=== PATIENT | male | born 1995 | race Two or more races ===

== ENCOUNTER 2022-03-26 22:26 | Emergency (ER) | payer SELFPAY ==
[2022-03-26 22:33] VITALS: BP 135/70; PULSE 71; RESP 16; TEMP 36.4; O2SAT 98; BMI 30.7
--- NOTE | 2022-03-26 23:08 | ED.GENADULT ---
HPI - General Adult General Chief complaint: Unspecified Complaint, Adult Stated complaint: Right finger swelling around ring Time Seen by Provider: 03/26/22 22:27 History of Present Illness HPI narrative: Patient is a 26-year-old gentleman who comes in today with very tight ring on his 4th digit of his right hand. The proximal digit is beginning to swell and he is no longer able to remove the ring. He has good sensation of his finger tip full range of motion no signs of skin breakdown. Related Data Home Medications Medication Instructions Recorded Confirmed No Known Home Medications 03/26/22 03/26/22 Allergies Allergy/AdvReac Type Severity Reaction Status Date / Time No Known Drug Allergies Allergy Verified 03/26/22 22:35 Review of Systems Status of ROS: Reports: 10 or more systems reviewed and unremarkable except as noted in History and below [facility] Medical History (Updated 03/26/22 @ 22:58 by Jose Manuel Palacio MD) Exercise-induced asthma Surgical History (Updated 03/26/22 @ 22:37 by Tani Dorantes RN) No significant past surgical history Social History Smoking Status: Current some day smoker What tobacco products do you use: cigarettes Do you use any of these nicotine containing products: None Second hand tobacco smoke exposure: Yes How often do you have a drink containing alcohol: never How often do you have six or more drinks on one occasion: Never AUDIT-C Alcohol total score: 0 Non-prescribed substance use: denies use Exam Narrative: Exam Narrative: EXAM GENERAL: Patient appears comfortable and well. EYES: No scleral icterus. LYMPH: No supraclavicular or cervical lymphadenopathy. SKIN: Visible skin seen during exam normal or with benign process only. EXT: Right 4th digit is swollen with good circulation. ABD: Soft, non tender, non distended. PSYCH: Good eye contact, speech is not pressured. Const: Vital Signs, click to edit/add: Vital Signs - 24 hr 03/26/22 22:33 Temperature 97.6 F Pulse Rate [Right Pulse Oximeter] 71 Respiratory Rate 16 Blood Pressure [Ri ght Upper Arm] 135/70 Pulse Oximetry 98 Course Course Hospital Course: Ring cutter was used to remove the ring. The circulation was restored and patient is now asymptomatic. Vital Signs Vital signs: Initial Vital Signs Temperature 97.6 F 03/26/22 22:33 Temperature Source Temporal Artery Scan 03/26/22 22:33 Pulse Rate 71 03/26/22 22:33 Respiratory Rate 16 03/26/22 22:33 Blood Pressure 135/70 03/26/22 22:33 Blood Pressure Mean 91 03/26/22 22:33 Blood Pressure Position Sitting 03/26/22 22:33 Pulse Oximetry 98 03/26/22 22:33 Oxygen Delivery Method 03/26/22 22:33 Vital Signs Temperature 97.6 F 03/26/22 22:33 Pulse Rate 71 03/26/22 22:33 Respiratory Rate 16 03/26/22 22:33 Blood Pressure 135/70 03/26/22 22:33 Pulse Oximetry 98 03/26/22 22:33 Temperature 97.6 F 03/26/22 22:33 Pulse Rate 71 03/26/22 22:33 Respiratory Rate 16 03/26/22 22:33 Blood Pressure 135/70 03/26/22 22:33 Pulse Oximetry 98 03/26/22 22:33 Discharge Plan Discharge Clinical Impression: Finger injury Patient Disposition: Home, Self-Care Condition: Stable Additional Instructions: Ice Tylenol Motrin Activity Level: Activity as Tolerated Discharge Diet: Regular Prescriptions: No Action No Known Home Medications 0RF Stand Alone Forms: My[employer] Info Instructions
[2022-03-26 23:28] VITALS: BP 135/72; PULSE 78; RESP 16; TEMP 36.4
== END 2022-03-26 23:11 | disposition home or self-care (01) ==
LOC: ED 23:16
PROVIDERS: Emergency Provider Internal Medicine
DX: S60.444A External constriction of right ring finger, initial encounter (principal); W49.04XA Ring or other jewelry causing external constriction, initial encounter
CPT/HCPCS: 99282; 99283

== ENCOUNTER 2022-07-20 21:00 | Emergency (ER) | payer SELFPAY ==
[2022-07-20 21:08] VITALS: BP 160/88; PULSE 89; RESP 18; TEMP 37; O2SAT 97
--- NOTE | 2022-07-20 21:19 | CRLHL7_ITS ---
For Patients: As a result of the Cures Act, medical imaging exams and procedure reports are released immediately into your electronic medical record. You may view this report before your referring provider. If you have questions, please contact your health care provider. INDICATION: Chest pain. TECHNIQUE: Chest 1 views. COMPARISON: None. FINDINGS: Cardiovascular and mediastinum: Cardiomediastinal silhouette is within normal limits. Lungs and pleural spaces: Lungs are clear. No sign of pleural effusion. No pneumothorax. Bones and soft tissues: No significant findings. IMPRESSION: No acute cardiopulmonary process identified. Dictated by Leann Negrete MD @ 07/20/2022 10:22:15 PM (Electronically Signed)
--- NOTE | 2022-07-20 21:21 | ED.CHESTPAIN ---
HPI - Chest Pain General Chief Complaint: Chest Pain Stated Complaint: Chest pain, congestion, coughing Time Seen by Provider: 07/20/22 21:16 History of Present Illness HPI narrative: Pt is a 26 year old gentleman who comes in with chest pain, congestion, general malaise and pharyngitis for the past 2-3 days. Pt is not vaccinated for COVID 19. Pt has a nonproductive cough. He has no sick contacts. Pt in is dull and anterior without radiation. No improvement with OTC. Pain is moderate in intensity. No previous history of cardiovascular or respiratory illness except mild exercise induced asthma. Related Data Home Medications Medication Instructions Recorded Confirmed No Known Home Medications 03/26/22 03/26/22 Allergies Allergy/AdvReac Type Severity Reaction Status Date / Time No Known Drug Allergies Allergy Verified 03/26/22 22:35 Review of Systems Status of ROS Reports: 10 or more systems reviewed and unremarkable except as noted in History and below PFSH PFS Medical History Exercise-induced asthma Surgical History No significant past surgical history Social History Smoking Status: Current some day smoker What tobacco products do you use: cigarettes Do you use any of these nicotine containing products: None Second hand tobacco smoke exposure: Yes How often do you have a drink containing alcohol: never How often do you have six or more drinks on one occasion: Never AUDIT-C Alcohol total score: 0 Non-prescribed substance use: denies use Exam Narrative Exam Narrative: EXAM GENERAL: Patient appears comfortable and well. EYES: No scleral icterus. ENT: Tympanic membranes and oropharynx normal. THYROID: no thyroid nodules or thyromegaly. LYMPH: No supraclavicular or cervical lymphadenopathy. SKIN: Visible skin seen during exam normal or with benign process only. EXT: No dependent lower extremity pedal edema. HEART: Regular rate and rhythm with no murmurs, rubs, or gallops. LUNGS: Clear to auscultation bilaterally with no crackles or wheezes. ABD: Soft, non tender, non distended. PSYCH: Good eye contact, speech is not pressured. Const Vital Signs, click to edit/add: Vital Signs - 24 hr 07/20/22 21:08 Temperature 98.6 F Pulse Rate [Left Pulse Oximeter] 89 Respiratory Rate 18 Blood Pressure [Right Upper Arm] 160/88 H Pulse Oximetry 97 Oxygen Delivery Method Room Air Course Course Hospital Course: Pt seen and examined. Appropriate studies collected. Reevaluation(s) Reevaluation #1: Work up including CXR, D dimer, CBC, BMP, Troponin, Viral Swab, Strep swab, EKG all negative. Time: 22:21 Vital Signs Vital signs: Initial Vital Signs Temperature 98.6 F 07/20/22 21:08 Temperature Source Temporal Artery Scan 07/20/22 21:08 Pulse Rate 89 07/20/22 21:08 Pulse Rhythm 07/20/22 21:08 Respiratory Rate 18 07/20/22 21:08 Blood Pressure 160/88 H 07/20/22 21:08 Blood Pressure Mean 112 07/20/22 21:08 Blood Pressure Position Sitting 07/20/22 21:08 Pulse Oximetry 97 07/20/22 21:08 Oxygen Delivery Method 07/20/22 21:08 Vital Signs Temperature 98.6 F 07/20/22 21:08 Pulse Rate 89 07/20/22 21:08 Respiratory Rate 18 07/20/22 21:08 Blood Pressure 160/88 H 07/20/22 21:08 Pulse Oximetry 97 07/20/22 21:08 Oxygen Delivery Method 07/20/22 21:08 Temperature 98.6 F 07/20/22 21:08 Pulse Rate 89 07/20/22 21:08 Respiratory Rate 18 07/20/22 21:08 Blood Pressure 160/88 H 07/20/22 21:08 Pulse Oximetry 97 07/20/22 21:08 Oxygen Delivery Method 07/20/22 21:08 MDM - Chest Pain MDM Narrative Medical decision making narrative: Pt presents with SOB and chest pain. Extensive workup as above negative Pt with normal exam and vital signs. Will treat symptomatically with out pt follow up. Differential Diagnosis Differential diagnosis: Likely pneumothorax, stable angina, atypical chest pain, st elevation myocardial infarction, costochondritis and chest pain Lab Data Labs: Lab Results 07/20/22 07/20/22 07/20/22 Range/Units 21:12 21:25 21:25 WBC 6.74 (4.50-11.00) K/uL RBC 4.98 (4.30-5.90) m/uL Hgb 15.2 (13.5-17.5) gm/dL Hct 43.6 (37.0-53.0) % MCV 88 (80-100) fL MCH 31 (26-34) pg MCHC 35 (32-36) gm/dL RDW Coeff of Parris 12.8 (11.5-15.5) % Plt Count 240 (140-440) K/uL Neut % (Auto) 53.6 (42.0-72.0) % Lymph % (Auto) 38.3 (20-44) % Caroline % (Auto) 6.1 (0.0-11.0) % Eos % (Auto) 1.6 (0.0-7.0) % Baso % (Auto) 0.3 (0.0-3.0) % Neut # (Auto) 3.61 (1.7-7.0) K/uL Lymph # (Auto) 2.58 (0.90-2.90) K/uL Caroline # (Auto) 0.40 (0.00-0.90) K/UL Eos # (Auto) 0.11 (0.00-0.50) K/uL Baso # (Auto) 0.02 (0.00-0.30) K/uL Abs Immat Gran (auto) 0.01 (0.00-0.30) K/uL Imm/Tot Granulo (auto) 0.1 % D-Dimer Quant (PE/DVT) 0.40 (0.00-0.50) ug/ml Sodium (135-149) mmol/L Potassium (3.6-5.1) mmol/L Chloride (96-114) mmol/L Carbon Dioxide (20-32) mmol/L BUN (5-24) mg/dL Creatinine (0.5-1.5) mg/dL Estimated GFR ml/min Glucose (60-115) mg/dL Calcium (8.4-10.6) mg/dL Troponin I (0.01-0.04) ng/mL SARS-CoV-2 (PCR) Negative SARS-CoV-2 (Negative) Influenza Type A (PCR) Negative PCR FLU A (Negative) Influenza Type B (PCR) Negative PCR FLU B (Negative) RSV (PCR) Negative PCR RSV (Negative) Group A Strep DNA (Not Detectd) 07/20/22 07/20/22 Range/Units 21:25 21:25 WBC (4.50-11.00) K/uL RBC (4.30-5.90) m/uL Hgb (13.5-17.5) gm/dL Hct (37.0-53.0) % MCV (80-100) fL MCH (26-34) pg MCHC (32-36) gm/dL RDW Coeff of Parris (11.5-15.5) % Plt Count (140-440) K/uL Neut % (Auto) (42.0-72.0) % Lymph % (Auto) (20-44) % Caroline % (Auto) (0.0-11.0) % Eos % (Auto) (0.0-7.0) % Baso % (Auto) (0.0-3.0) % Neut # (Auto) (1.7-7.0) K/uL Lymph # (Auto) (0.90-2.90) K/uL Caroline # (Auto) (0.00-0.90) K/UL Eos # (Auto) (0.00-0.50) K/uL Baso # (Auto) (0.00-0.30) K/uL Abs Immat Gran (auto) (0.00-0.30) K/uL Imm/Tot Granulo (auto) % D-Dimer Quant (PE/DVT) (0.00-0.50) ug/ml Sodium 140 (135-149) mmol/L Potassium 3.9 (3.6-5.1) mmol/L Chloride 102 (96-114) mmol/L Carbon Dioxide 26 (20-32) mmol/L BUN 14 (5-24) mg/dL Creatinine 1.2 (0.5-1.5) mg/dL Estimated GFR 86 ml/min Glucose 115 (60-115) mg/dL Calcium 9.9 (8.4-10.6) mg/dL Troponin I < 0.01 L (0.01-0.04) ng/mL SARS-CoV-2 (PCR) (Negative) Influenza Type A (PCR) (Negative) Influenza Type B (PCR) (Negative) RSV (PCR) (Negative) Group A Strep DNA NOT DETECTED (Not Detectd) Discharge Plan Discharge Clinical Impression: Atypical chest pain Condition: Stable Instructions: Viral Syndrome (ED) Additional Instructions: Tylenol Motrin Rest Fluids Activity Level: No Restrictions Discharge Diet: Regular Prescriptions: No Action No Known Home Medications Follow Up/Referrals: Provider,Not a Local [Primary Care Provider] - Stand Alone Forms: MyHealth Info Instructions
[2022-07-20 21:38] LABS: Basophils Absolute Auto 0.02 K/uL (0.00-0.30); Basophils Percent Auto 0.3 % (0.0-3.0); Eosinophils Absolute Auto 0.11 K/uL (0.00-0.50); Eosinophils Percent Auto 1.6 % (0.0-7.0); Hematocrit 43.6 % (37.0-53.0); Hemoglobin* 15.2 gm/dL (13.5-17.5); Immature Granulocytes Abs Auto 0.01 K/uL (0.00-0.30); Immature Granulocytes Pct Auto 0.1 %; Lymphocytes Absolute Auto 2.58 K/uL (0.90-2.90); Lymphocytes Percent Auto 38.3 % (20-44); Mean Corpuscular HGB Conc 35 gm/dL (32-36); Mean Corpuscular Hemoglobin 31 pg (26-34); Mean Corpuscular Volume 88 fL (80-100); Monocytes Percent Auto 6.1 % (0.0-11.0); Neutrophils Absolute Auto 3.61 K/uL (1.7-7.0); Neutrophils Percent Auto 53.6 % (42.0-72.0); Platelet Count* 240 K/uL (140-440); RDW Coefficient of Variation % 12.8 % (11.5-15.5); Red Blood Count 4.98 m/uL (4.30-5.90); White Blood Count* 6.74 K/uL (4.50-11.00)
[2022-07-20 21:42] LABS: Slide Review Reflex No
[2022-07-20 21:56] LABS: Chloride* 102 mmol/L (96-114); Sodium* 140 mmol/L (135-149)
[2022-07-20 21:57] LABS: Potassium* 3.9 mmol/L (3.6-5.1)
[2022-07-20 21:58] LABS: PCR FLU A Negative PCR FLU A (Negative); PCR FLU B Negative PCR FLU B (Negative); PCR RSV Negative PCR RSV (Negative)
[2022-07-20 21:59] LABS: Blood Urea Nitrogen* 14 mg/dL (5-24); Carbon Dioxide* 26 mmol/L (20-32); Creatinine* 1.2 mg/dL (0.5-1.5); Estimated Glomerular Filt Rate 86 ml/min
[2022-07-20 21:59] LABS: SARS PCR* Negative SARS-CoV-2 (Negative)
[2022-07-20 22:00] VITALS: PULSE 78; O2SAT 96
[2022-07-20 22:00] LABS: Calcium* 9.9 mg/dL (8.4-10.6); Glucose* 115 mg/dL (60-115)
[2022-07-20 22:04] LABS: Strep A DNA Probe* NOT DETECTED (Not Detectd)
[2022-07-20 22:13] LABS: Troponin I* < 0.01 ng/mL (0.01-0.04)
== END 2022-07-20 22:31 | disposition home or self-care (01) ==
LOC: ED 22:29
PROVIDERS: Emergency Provider Internal Medicine
DX: R07.89 Other chest pain (principal)
CPT/HCPCS: 36415; 71045; 80048; 84484; 85025; 85379; 87502; 87634; 87635; 87651; 93005; 99283; 99284; 99285

== ENCOUNTER 2022-07-31 16:24 | Emergency (ER) | payer SELFPAY ==
[2022-07-31 17:06] VITALS: BP 148/84; PULSE 111; RESP 20; TEMP 37.9; O2SAT 97; BMI 32.1
[2022-07-31 18:01] LABS: PCR FLU A POSITIVE PCR FLU A (Negative); PCR FLU B Negative PCR FLU B (Negative)
[2022-07-31 18:03] LABS: SARS PCR* Negative SARS-CoV-2 (Negative)
--- NOTE | 2022-07-31 18:29 | ED_ITS ---
HPI - General Adult General Time Seen by Provider: 18:30 Date Seen: 07/31/22 Chief complaint: Fever Stated complaint: Fever, cough, body aches Time Seen by Provider: 07/31/22 18:19 Source: patient and RN notes reviewed Mode of arrival: ambulatory Limitations: no limitations History of Present Illness HPI narrative: 26-year-old male who comes in today with cough, headache, fever, nasal congestion, sore throat, nausea vomiting. Symptoms have been ongoing for couple of weeks but worse in the last 5 days. He has been taking Tylenol and ibuprofen. No breathing difficulty but has burning in his throat he takes big breath in. No abdominal pain. Related Data Home Medications Medication Instructions Recorded Confirmed No Known Home Medications 03/26/22 07/31/22 Allergies Allergy/AdvReac Type Severity Reaction Status Date / Time No Known Drug Allergies Allergy Verified 07/31/22 17:11 [facility] Medical History Exercise-induced asthma Surgical History No significant past surgical history Social History Smoking Status: Current some day smoker What tobacco products do you use: cigar ettes Do you use any of these nicotine containing products: None Second hand tobacco smoke exposure: Yes How often do you have a drink containing alcohol: never How often do you have six or more drinks on one occasion: Never AUDIT-C Alcohol total score: 0 Non-prescribed substance use: denies use Exam Narrative: Exam Narrative: General: Well-developed and well-nourished, no acute distress Head: Atraumatic and normocephalic Eyes: Pupils are equal reactive, extraocular motions intact, conjunctiva clear ENT: External nose and ears are normal, posterior pharynx oropharynx with mild erythema Neck: No midline cervical tenderness, full spontaneous range of motion the nec k, trachea midline, no adenopathy Heart: Regular rate and rhythm no murmurs or thrills Lungs: Clear to auscultation bilaterally without wheezes or crackles Abdomen: Soft, nontender, nondistended with active bowel sounds Musculoskeletal: No tenderness, deformity, or edema Neurologic: Awake, alert, and oriented x3, no gross focal neurologic deficits, cranial nerves intact as tested Psych: Mood and affect are appropriate Skin: No rashes Const: Vital Signs, click to edit/add: Vital Signs - 24 hr 07/31/22 17:06 Temperature 100.2 F H Pulse Rate [Right Pulse Oximeter] 111 H Respiratory Rate 20 Blood Pressure [Ri ght Upper Arm] 148/84 H Pulse Oximetry 97 Oxygen Delivery Me thod Room Air Course Course Hospital Course: Patient seen and examined, prior records reviewed. Patient with upper respiratory symptoms, he says ongoing for the last 3 weeks worse last 5 days. Influenza positive which is probably the source of his worsening symptoms the last couple of days. Discussed continued symptom treatment, will be given a prescription for Zofran. Patient is tachycardic likely related his fever. Vital Signs Vital signs: Initial Vital Signs Temperature 100.2 F H 07/31/22 17:06 Temperature Source Temporal Artery Scan 07/31/22 17:06 Pulse Rate 111 H 07/31/22 17:06 Respiratory Rate 20 07/31/22 17:06 Blood Pressure 148/84 H 07/31/22 17:06 Blood Pressure Mean 105 07/31/22 17:06 Blood Pressure Position Sitting 07/31/22 17:06 Pulse Oximetry 97 07/31/22 17:06 Oxygen Delivery Method 07/31/22 17:06 Vital Signs Temperature 100.2 F H 07/31/22 17:06 Pulse Rate 111 H 07/31/22 17:06 Respiratory Rate 20 07/31/22 17:06 Blood Pressure 148/84 H 07/31/22 17:06 Pulse Oximetry 97 07/31/22 17:06 Oxygen Delivery Method 07/31/22 17:06 Temperature 100.2 F H 07/31/22 17:06 Pulse Rate 111 H 07/31/22 17:06 Respiratory Rate 20 07/31/22 17:06 Blood Pressure 148/84 H 07/31/22 17:06 Pulse Oximetry 97 07/31/22 17:06 Oxygen Delivery Method 07/31/22 17:06 Medical Decision Making Lab Data Labs: Lab Results 07/31/22 Range/Units 17:14 SARS-CoV-2 (PCR) Negative SARS-CoV-2 (Negative) Influenza Type A (PCR) POSITIVE PCR FLU A A (Negative) Influenza Type B (PCR) Negative PCR FLU B (Negative) Discharge Plan Discharge Clinical Impression: Influenza A Patient Disposition: Home, Self-Care Condition: Stable Instructions: Influenza (DC) Additional Instructions: Lots of fluids and rest, continue Tylenol and ibuprofen for fever. Activity Level: No Restrictions Discharge Diet: Regular Prescriptions: No Action No Known Home Medications Follow Up/Referrals: Provider,Not a Local [Primary Care Provider] - Stand Alone Forms: [employer] Info Instructions
== END 2022-07-31 18:50 | disposition home or self-care (01) ==
LOC: ED 18:45
PROVIDERS: Emergency Provider Family Medicine
DX: J10.1 Influenza due to other identified influenza virus with other respiratory manifestations (principal); Z72.0 Tobacco use
CPT/HCPCS: 87631; 99283; 99284

== ENCOUNTER 2024-01-14 20:50 | Emergency (ER) | payer OTHER, SELFPAY ==
[2024-01-14 21:01] VITALS: BP 169/83; PULSE 80; RESP 20; TEMP 36.9; O2SAT 98; BMI 30.7
[2024-01-14 21:50] LABS: PCR FLU A Negative PCR FLU A (Negative); PCR FLU B Negative PCR FLU B (Negative); PCR RSV Negative PCR RSV (Negative); SARS PCR* Negative SARS-CoV-2 (Negative)
--- NOTE | 2024-01-14 22:27 | XR_ITS ---
Patient: CARLOS PÉREZ Facility:?[facility] Patient ID:?[id number] Site Patient ID:?[id number]. Site :?[id number] Study:?XRay-Chest 2V-01/14/2024 10:50:30 PM Ordering Physician:KARTHIK Final Report: INDICATION: Shortness of breath. TECHNIQUE: Chest 2 views. COMPARISON: 07/20/2022. FINDINGS: Cardiovascular and mediastinum: Heart size and vasculature are normal in caliber and appearance. Lungs and pleural spaces: Lungs are clear. No sign of infiltrate or mass. No sign of pleural effusion. No pneumothorax. Bones and soft tissues: Unremarkable for age. IMPRESSION: No evidence of an acute pulmonary process. Dictated by Godfrey Loco MD @ 01/14/2024 11:05:59 PM Signed by:?Godfrey Loco MD @01/14/2024 11:05:59 PM (Electronic Signature)
[2024-01-14 23:02] VITALS: BP 146/90; PULSE 76; RESP 16; O2SAT 96
[2024-01-14] MEDS: 0.9 % SODIUM CHLORIDE 1000 ml 1,000 ML IV (23:04)
[2024-01-14] MEDS: diphenhydrAMINE 50 MG/ML inj 25 MG IVP (23:05)
[2024-01-14] MEDS: METOCLOPRAMIDE HCL 5 MG/ML INJ 10 MG IVP (23:05)
[2024-01-14] MEDS: KETOROLAC 15 MG/ML inj IVP (23:05)
--- NOTE | 2024-01-14 23:27 | ED.GENADULT ---
HPI - General Adult General Date Seen: 01/14/24 Chief complaint: Fever Stated complaint: Fever, body aches Time Seen by Provider: 01/14/24 22:27 Source: patient Mode of arrival: ambulatory Limitations: no limitations History of Present Illness HPI narrative: Patient is a 28-year-old male presenting to the emergency department for headaches, fevers, body aches and some mild shortness of breath has been going on for the past 4 days. He has been taking ibuprofen last time he took was 16:00 today. His giving some mild relief with it. Does states sister has been having similar symptoms but she has not been diagnosed with anything. States the headache feels like a pressure sensation in his forehead. Denies having any headaches like this before. Denies chest pain. He does state he feels short of breath. Denies nausea, vomiting, abdominal pain, diarrhea, constipation, Related Data Home Medications Medication Instructions Recorded Confirmed No Known Home Medications 03/26/22 07/31/22 Allergies Allergy/AdvReac Type Severity Reaction Status Date / Time No Known Drug Allergies Allergy Verified 07/31/22 17:11 Review of Systems Status of ROS: Reports: 10 or more systems reviewed and unremarkable except as noted in History and below [facility] Medical History Exercise-induced asthma ?J45.990 - Exercise induced bronchospasm (ICD-10) Surgical History No significant past surgical history Social History Smoking Status: Current some day smoker What tobacco products do you use: cigarettes Do you use any of these nicotine containing products: None Second hand tobacco smoke exposure: Yes How often do you have a drink containing alcohol: 2-4 times a month How many standard drinks containing alcohol do you have on a typical day: 1 or 2 How often do you have six or more drinks on one occasion: Never AUDIT-C Alcohol total score: 2 Non-prescribed substance use: denies use service: No Exam Narrative: Exam Narrative: Const: Well-nourished, Well-developed, in mild distress Eyes: PERRL, no conjunctival injection, and symmetrical lids HENT: Atraumatic external nose and ears. Moist mucous membranes. Neck: Symmetric, trachea midline, No thyromegaly. CVS: RRR, No murmurs or gallops. Peripheral pulses 2+ and equal in all extremities RESP: Unlabored respiratory effort. Clear to auscultation bilaterally. GI: Nontender/Nondistended, No rebound or guarding. MSK:Extremities w/o deformity, Normal Active ROM Skin: Warm, Dry. No rashes or lesions. Neuro: Normal Muscle tone, No focal neurological deficits. Psych: Awake, Alert, & Oriented x3. Appropriate mood and affect. Const: Vital Signs, click to edit/add: Vital Signs - 24 hr 01/14/24 21:01 01/14/24 23:02 Temperature 98.4 F Pulse Rate [Right Pulse Oximeter] 80 76 Respiratory Rate 20 16 Blood Pressure [Ri ght Upper Arm] 169/83 H 146/90 H Pulse Oximetry 98 96 Oxygen Delivery Me thod Room Air Room Air Course Vital Signs Vital signs: Initial Vital Signs Temperature 98.4 F 01/14/24 21:01 Temperature Source Oral 01/14/24 21:01 Pulse Rate 80 01/14/24 21:01 Pulse Rhythm Regular 01/14/24 21:01 Respiratory Rate 20 01/14/24 21:01 Blood Pressure 169/83 H 01/14/24 21:01 Blood Pressure Mean 111 H 01/14/24 21:01 Blood Pressure Position Sitting 01/14/24 21:01 Pulse Oximetry 98 01/14/24 21:01 Oxygen Delivery Method Room Air 01/14/24 21:01 Vital Signs Temperature 98.4 F 01/14/24 21:01 Pulse Rate 80 01/14/24 21:01 Respiratory Rate 20 01/14/24 21:01 Blood Pressure 169/83 H 01/14/24 21:01 Pulse Oximetry 98 01/14/24 21:01 Oxygen Delivery Method Room Air 01/14/24 21:01 Temperature 98.4 F 01/14/24 21:01 Pulse Rate 76 01/14/24 23:02 Respiratory Rate 16 01/14/24 23:02 Blood Pressure 146/90 H 01/14/24 23:02 Pulse Oximetry 96 01/14/24 23:02 Oxygen Delivery Method Room Air 01/14/24 23:02 Medications Administered Medications: Generic Name Dose Route Start Last Admin Trade Name Freq PRN Reason Stop Dose Admin Sodium Chloride 1,000 mls @ 1,000 mls/hr 01/14/24 22:30 01/14/24 23:04 0.9 % Sodium Chloride 1000 Ml IV 01/14/24 23:29 1,000 mls/hr .Q1H KATERINA Administration Discontinued Medications Generic Name Dose Route Start Last Admin Trade Name Freq PRN Reason Stop Dose Admin Diphenhydramine HCl 25 mg 01/14/24 22:27 01/14/24 23:05 Diphenhydramine 50 Mg/Ml Inj IVP 01/14/24 22:28 25 mg ONCE ONE Administration Ketorolac Tromethamine 15 mg 01/14/24 22:27 01/14/24 23:05 Ketorolac 15 Mg/Ml Inj IVP 01/14/24 22:28 15 mg ONCE ONE Administration Metoclopramide HCl 10 mg 01/14/24 22:27 01/14/24 23:05 Metoclopramide Hcl 5 Mg/Ml Inj IVP 01/14/24 22:28 10 mg ONCE ONE Administration Medical Decision Making [facility] Narrative Medical decision making narrative: Patient is a 28-year-old male presenting for what sounds like viral symptoms. Will do a chest x-ray as he is having some shortness of breath although his vital signs are normal. He is also having headache. Denies having headaches like this before but with his viral syndrome this seems likely secondary to that. I do not believe head imaging is necessary at this time. Will give him a migraine cocktail. COVID/flu/RSV test was done and was negative. He was feeling much better after the migraine cocktail. Chest x-ray reviewed by myself and the radiologist showed no concerning abnormalities. He is otherwise doing well can discharge home. He is agreeable to this plan Lab Data Labs: Lab Results 01/14/24 Range/Units 21:05 SARS-CoV-2 (PCR) Negative SARS-CoV-2 (Negative) Influenza Type A (PCR) Negative PCR FLU A (Negative) Influenza Type B (PCR) Negative PCR FLU B (Negative) RSV (PCR) Negative PCR RSV (Negative) Imaging Data Chest x-ray: Attestation: I have reviewed the pertinent imaging results. Radiologist's impression: No evidence of an acute pulmonary process. Dictated by Godfrey Loco MD @ 01/14/2024 11:05:59 PM Discharge Plan Discharge Clinical Impression: Viral infection Patient Disposition: Home, Self-Care Condition: Improved Instructions: Viral Syndrome (ED) Additional Instructions: Take Tylenol and ibuprofen for pain. Return to emergency department for new worsening symptoms. Make sure to stay well hydrated. Prescriptions: No Action No Known Home Medications Follow Up/Referrals: Provider,Not a Local [Primary Care Provider] - Stand Alone Forms: [employer] Info Instructions
[2024-01-14 23:44] VITALS: BP 138/78; PULSE 88; RESP 18; TEMP 37.2
== END 2024-01-14 23:44 | disposition home or self-care (01) ==
PROVIDERS: Emergency Provider Student in an Organized Health Care Education/Training Program
DX: B34.9 Viral infection, unspecified (principal)
CPT/HCPCS: 71046; 87631; 96374; 96375; 99283; 99284; J1200; J1885; J2765; J7030

== ENCOUNTER 2024-04-26 21:43 | Emergency (ER) | payer OTHER, SELFPAY ==
--- NOTE | 2024-04-26 21:52 | ED_ITS ---
HPI - General Adult General Time Seen by Provider: 21:52 <Sumaya Coley MD - Last Filed: 05/04/24 19:07> Date Seen: 04/26/24 <Sumaya Coley MD - Last Filed: 05/04/24 19:07> Chief complaint: Overdose <Sumaya Coley MD - Last Filed: 05/04/24 19:07> Stated complaint: overdose <Sumaya Coley MD - Last Filed: 05/04/24 19:07> Time Seen by Provider: 04/26/24 21:47 <Sumaya Coley MD - Last Filed: 05/04/24 19:07> Source: patient and RN notes reviewed <Sumaya Coley MD - Last Filed: 05/04/24 19:07> Mode of arrival: ambulatory <Sumaya Coley MD - Last Filed: 05/04/24 19:07> Limitations: no limitations <Sumaya Coley MD - Last Filed: 05/04/24 19:07> History of Present Illness HPI narrative: This 28-year-old male comes into the ER accompanied by his significant other with an overdose. Lonnie took nearly a whole bottle of Naprosyn. He had an [id number] bottle of Naprosyn that was reportedly new. There were 60 tablets in there, some fell out. He ingested the majority of them. It sounds as if this was an impulsive act. He had been in his bedroom all day, did not go out. He and his partner have been having issues. He found out this morning that his significant other was seeing someone else. He admits to depression and anxiety. He states tonight he had a panic attack and then took the pills. He has been having problems with sleep latency. Normally he would go to the gym but just has not felt like going to the gym a week long, has felt depressed. He is not been hospitalized for depression, no prior overdose. He has a history of depression when he was younger. He states that he has been going to the gym to help counteract his mood but just has not been able to go this last week. He has not been sick with anything. He does feel remorseful for taking the medicine, felt bad after ingesting them right away. He ingested them in front of his partner. He and his partner have been together for 8 years but they have been struggling as of late. This is certainly an area of stress for the patient. He denies any alcohol use, no drug use. Denies any other coingestant. <Sumaya Coley MD - Last Filed: 05/04/24 19:07> Related Data Home medications: Home Medications ?Medication ?Instructions ?Recorded ?Confirmed No Known Home Medications 03/26/22 07/31/22 <Sumaya Coley MD - Last Filed: 05/04/24 19:07> Allergies/adverse reactions: Allergies Allergy/AdvReac Type Severity Reaction Status Date / Time No Known Drug Allergies Allergy Verified 07/31/22 17:11 <Sumaya Coley MD - Last Filed: 05/04/24 19:07> Review of Systems Status of ROS: Reports: 6 or more systems reviewed and unremarkable except as noted in History and below <Sumaya Coley MD - Last Filed: 05/04/24 19:07> [facility] Medical History: Medical History Exercise-induced asthma ?J45.990 - Exercise induced bronchospasm (ICD-10) <Sumaya Coley MD - Last Filed: 05/04/24 19:07> Surgical History: Surgical History No significant past surgical history <Sumaya Coley MD - Last Filed: 05/04/24 19:07> Social History: Social History Smoking Status: Current some day smoker What tobacco products do you use: cigarettes Do you use any of these nicotine containing products: None Second hand tobacco smoke exposure: Yes How often do you have a drink containing alcohol: 2-4 times a month How many standard drinks containing alcohol do you have on a typical day: 1 or 2 How often do you have six or more drinks on one occasion: Never AUDIT-C Alcohol total score: 2 Non-prescribed substance use: denies use service: No <Sumaya Coley MD - Last Filed: 05/04/24 19:07> Exam Const: Vital Signs, click to edit/add: Vital Signs - 24 hr 04/26/24 21:56 04/26/24 22:24 04/26/24 22:26 Temperature 97.9 F Pulse Rate 76 Pulse Rate [Pulse Oximeter] 88 Respiratory Rate 16 16 Blood Pressure 142/89 H Blood Pressure [Ri ght Upper Arm] 141/87 H Pulse Oximetry 98 98 Oxygen Delivery Me thod Room Air 04/26/24 22:31 04/26/24 23:01 04/26/24 23:31 Temperature Pulse Rate 76 71 72 Pulse Rate [Pulse Oximeter] Respiratory Rate 16 16 16 Blood Pressure 134/81 135/83 130/91 H Blood Pressure [Ri ght Upper Arm] Pulse Oximetry 97 96 Oxygen Delivery Me thod 04/27/24 01:03 04/27/24 01:12 04/27/24 02:00 Temperature Pulse Rate 97 68 Pulse Rate [Pulse Oximeter] 70 Respiratory Rate 16 Blood Pressure 124/58 L Blood Pressure [Ri ght Upper Arm] Pulse Oximetry 96 97 Oxygen Delivery Me thod 04/27/24 02:02 04/27/24 02:03 04/27/24 03:00 Temperature Pulse Rate 70 71 68 Pulse Rate [Pulse Oximeter] Respiratory Rate 16 Blood Pressure 109/62 Blood Pressure [Ri ght Upper Arm] Pulse Oximetry 97 97 96 Oxygen Delivery Me thod 04/27/24 03:01 04/27/24 04:01 04/27/24 04:02 Temperature Pulse Rate 71 73 74 Pulse Rate [Pulse Oximeter] Respiratory Rate 16 16 Blood Pressure 104/50 L 103/60 Blood Pressure [Ri ght Upper Arm] Pulse Oximetry 96 98 98 Oxygen Delivery Me thod 04/27/24 05:00 04/27/24 05:04 04/27/24 05:05 Temperature Pulse Rate 78 72 74 Pulse Rate [Pulse Oximeter] Respiratory Rate 16 Blood Pressure Blood Pressure [Ri ght Upper Arm] Pulse Oximetry 98 97 98 Oxygen Delivery Me thod 04/27/24 05:39 04/27/24 06:00 04/27/24 06:02 Temperature Pulse Rate 77 87 95 Pulse Rate [Pulse Oximeter] Respiratory Rate Blood Pressure 109/54 L Blood Pressure [Ri ght Upper Arm] Pulse Oximetry 97 97 97 Oxygen Delivery Me thod 04/27/24 07:00 04/27/24 07:01 04/27/24 07:02 Temperature Pulse Rate 75 82 75 Pulse Rate [Pulse Oximeter] Respiratory Rate Blood Pressure 101/58 L Blood Pressure [Ri ght Upper Arm] Pulse Oximetry 96 96 96 Oxygen Delivery Me thod 04/27/24 08:00 04/27/24 08:05 04/27/24 08:06 Temperature Pulse Rate 75 71 71 Pulse Rate [Pulse Oximeter] Respiratory Rate Blood Pressure Blood Pressure [Ri ght Upper Arm] Pulse Oximetry 97 97 97 Oxygen Delivery Me thod 04/27/24 08:46 04/27/24 09:00 04/27/24 09:05 Temperature 98.1 F Pulse Rate 97 94 Pulse Rate [Pulse Oximeter] Respiratory Rate 18 Blood Pressure Blood Pressure [Ri ght Upper Arm] Pulse Oximetry 98 98 Oxygen Delivery Me thod Lonnie is a 28-year-old male that is ambulatory into the ED of his own accord. Did watch him walking to and from the bathroom in his gait is normal. He is alert, interactive and pleasant but certainly seems depressed. He has flat affect, depressed mood. Pupils are equal round reactive, sclera clear. Neck supple, no adenopathy, no thyromegaly masses or nodules. Lungs are clear, good air entry, no wheezing or crackles. CV regular rate and rhythm, no murmur. Abdomen is soft, nontender. Skin without any rash, there is no traumatic changes, no cut mancilla to the skin. <Sumaya Coley MD - Last Filed: 05/04/24 19:07> Vital Signs, click to edit/add: Vital Signs - 24 hr 04/26/24 21:56 04/26/24 22:24 04/26/24 22:26 Temperature 97.9 F Pulse Rate 76 Pulse Rate [Pulse Oximeter] 88 Respiratory Rate 16 16 Blood Pressure 142/89 H Blood Pressure [Ri ght Upper Arm] 141/87 H Pulse Oximetry 98 98 Oxygen Delivery Me thod Room Air 04/26/24 22:31 04/26/24 23:01 04/26/24 23:31 Temperature Pulse Rate 76 71 72 Pulse Rate [Pulse Oximeter] Respiratory Rate 16 16 16 Blood Pressure 134/81 135/83 130/91 H Blood Pressure [Ri ght Upper Arm] Pulse Oximetry 97 96 Oxygen Delivery Me thod 04/27/24 01:03 04/27/24 01:12 04/27/24 02:00 Temperature Pulse Rate 97 68 Pulse Rate [Pulse Oximeter] 70 Respiratory Rate 16 Blood Pressure 124/58 L Blood Pressure [Ri ght Upper Arm] Pulse Oximetry 96 97 Oxygen Delivery Me thod 04/27/24 02:02 04/27/24 02:03 04/27/24 03:00 Temperature Pulse Rate 70 71 68 Pulse Rate [Pulse Oximeter] Respiratory Rate 16 Blood Pressure 109/62 Blood Pressure [Ri ght Upper Arm] Pulse Oximetry 97 97 96 Oxygen Delivery Me thod 04/27/24 03:01 04/27/24 04:01 04/27/24 04:02 Temperature Pulse Rate 71 73 74 Pulse Rate [Pulse Oximeter] Respiratory Rate 16 16 Blood Pressure 104/50 L 103/60 Blood Pressure [Ri ght Upper Arm] Pulse Oximetry 96 98 98 Oxygen Delivery Me thod 04/27/24 05:00 04/27/24 05:04 04/27/24 05:05 Temperature Pulse Rate 78 72 74 Pulse Rate [Pulse Oximeter] Respiratory Rate 16 Blood Pressure Blood Pressure [Ri ght Upper Arm] Pulse Oximetry 98 97 98 Oxygen Delivery Me thod 04/27/24 05:39 04/27/24 06:00 04/27/24 06:02 Temperature Pulse Rate 77 87 95 Pulse Rate [Pulse Oximeter] Respiratory Rate Blood Pressure 109/54 L Blood Pressure [Ri ght Upper Arm] Pulse Oximetry 97 97 97 Oxygen Delivery Me thod 04/27/24 07:00 04/27/24 07:01 04/27/24 07:02 Temperature Pulse Rate 75 82 75 Pulse Rate [Pulse Oximeter] Respiratory Rate Blood Pressure 101/58 L Blood Pressure [Ri ght Upper Arm] Pulse Oximetry 96 96 96 Oxygen Delivery Me thod 04/27/24 08:00 04/27/24 08:05 04/27/24 08:06 Temperature Pulse Rate 75 71 71 Pulse Rate [Pulse Oximeter] Respiratory Rate Blood Pressure Blood Pressure [Ri ght Upper Arm] Pulse Oximetry 97 97 97 Oxygen Delivery Me thod 04/27/24 08:46 04/27/24 09:00 04/27/24 09:05 Temperature 98.1 F Pulse Rate 97 94 Pulse Rate [Pulse Oximeter] Respiratory Rate 18 Blood Pressure Blood Pressure [Ri ght Upper Arm] Pulse Oximetry 98 98 Oxygen Delivery Me thod <Supriya Arango MD - Last Filed: 04/28/24 23:56> Vital Signs, click to edit/add: Vital Signs - 24 hr 04/26/24 21:56 04/26/24 22:24 04/26/24 22:26 Temperature 97.9 F Pulse Rate 76 Pulse Rate [Pulse Oximeter] 88 Respiratory Rate 16 16 Blood Pressure 142/89 H Blood Pressure [Ri ght Upper Arm] 141/87 H Pulse Oximetry 98 98 Oxygen Delivery Me thod Room Air 04/26/24 22:31 04/26/24 23:01 04/26/24 23:31 Temperature Pulse Rate 76 71 72 Pulse Rate [Pulse Oximeter] Respiratory Rate 16 16 16 Blood Pressure 134/81 135/83 130/91 H Blood Pressure [Ri ght Upper Arm] Pulse Oximetry 97 96 Oxygen Delivery Me thod 04/27/24 01:03 04/27/24 01:12 04/27/24 02:00 Temperature Pulse Rate 97 68 Pulse Rate [Pulse Oximeter] 70 Respiratory Rate 16 Blood Pressure 124/58 L Blood Pressure [Ri ght Upper Arm] Pulse Oximetry 96 97 Oxygen Delivery Me thod 04/27/24 02:02 04/27/24 02:03 04/27/24 03:00 Temperature Pulse Rate 70 71 68 Pulse Rate [Pulse Oximeter] Respiratory Rate 16 Blood Pressure 109/62 Blood Pressure [Ri ght Upper Arm] Pulse Oximetry 97 97 96 Oxygen Delivery Me thod 04/27/24 03:01 04/27/24 04:01 04/27/24 04:02 Temperature Pulse Rate 71 73 74 Pulse Rate [Pulse Oximeter] Respiratory Rate 16 16 Blood Pressure 104/50 L 103/60 Blood Pressure [Ri ght Upper Arm] Pulse Oximetry 96 98 98 Oxygen Delivery Me thod 04/27/24 05:00 04/27/24 05:04 04/27/24 05:05 Temperature Pulse Rate 78 72 74 Pulse Rate [Pulse Oximeter] Respiratory Rate 16 Blood Pressure Blood Pressure [Ri ght Upper Arm] Pulse Oximetry 98 97 98 Oxygen Delivery Me thod 04/27/24 05:39 04/27/24 06:00 04/27/24 06:02 Temperature Pulse Rate 77 87 95 Pulse Rate [Pulse Oximeter] Respiratory Rate Blood Pressure 109/54 L Blood Pressure [Ri ght Upper Arm] Pulse Oximetry 97 97 97 Oxygen Delivery Me thod 04/27/24 07:00 04/27/24 07:01 04/27/24 07:02 Temperature Pulse Rate 75 82 75 Pulse Rate [Pulse Oximeter] Respiratory Rate Blood Pressure 101/58 L Blood Pressure [Ri ght Upper Arm] Pulse Oximetry 96 96 96 Oxygen Delivery Me thod 04/27/24 08:00 04/27/24 08:05 04/27/24 08:06 Temperature Pulse Rate 75 71 71 Pulse Rate [Pulse Oximeter] Respiratory Rate Blood Pressure Blood Pressure [Ri ght Upper Arm] Pulse Oximetry 97 97 97 Oxygen Delivery Me thod 04/27/24 08:46 04/27/24 09:00 04/27/24 09:05 Temperature 98.1 F Pulse Rate 97 94 Pulse Rate [Pulse Oximeter] Respiratory Rate 18 Blood Pressure Blood Pressure [Ri ght Upper Arm] Pulse Oximetry 98 98 Oxygen Delivery Me thod <Godfrey Gonzales MD - Last Filed: 04/27/24 14:18> Documenting provider has reviewed patient's vital signs: yes <Sumaya Coley MD - Last Filed: 05/04/24 19:07> Course Course ED Course: Poison Control was contacted by nursing staff. They recommended a basic metabolic panel and then in 4 hours repeating the basic metabolic panel and a Tylenol level. They did state about 6 hours after ingestion he could become acidotic in could see a spike in his creatinine. I will be ordering a full laboratory evaluation that we would typically do for psychiatric patients. Will also screen for COVID. Have discussed with patient that be side the medical clearance, he does need psychiatric stabilization. We do not have psychiatric services here. In the morning, will have psychosocial rehabilitation counselor help us to look for placement. He has had a suicidal gesture with intentional overdose of Naprosyn. This is certainly serious an speaks as to his mental health. I do think he needs to see Psychiatry for mental health stabilization once medically clear. Patient is here voluntarily of his own volition at this time. Have reviewed with patient and his partner that he is holdable. <Sumaya Coley MD - Last Filed: 05/04/24 19:07> Reevaluation(s) Time of Reevaluation #1: 07:57 <Supriya Arango MD - Last Filed: 04/28/24 23:56> Reevaluation #1: Dr. Arango- I assumed care for patient overnight. I reviewed the admitting notes and have reviewed the to a.m. labs. They are all reassuring. Urine output was slightly borderline, therefore we continue to push oral fluids and I did bolus 1 L of IV fluid. Will continue to watch urine output closely. He can be medically cleared at this time. I did give omeprazole p.o. x1 to help with stomach protection in the setting of NSAID overdose. We are still awaiting transition social worker consult. Would likely benefit from inpatient placement and stabilization due to suicide attempt. Will hand over care to incoming day shift partner. <Supriya Arango MD - Last Filed: 04/28/24 23:56> Reevaluation #2: Dr. Gonzales assumed care of this patient at shift change-8:00 a.m. on 04/27. Patient had presented with an intentional overdose of nonsteroidal anti- inflammatories yesterday that occurred during a disagreement with his boyfriend after the patient confronted his boyfriend about infidelity. He is medically clear. Patient had been voluntarily amenable to therapy in the ER overnight. He is holdable but currently voluntary. Plan would be for an inpatient mental health admission. He will need to be assessed by social Work today to help find placement.... <Godfrey Gonzales MD - Last Filed: 04/27/24 14:18> Reevaluation #3: I recheck the patient at about 9 or 9:30 a.m.. He was alert, tired because he says he slept poorly due to the mattress here in the ER. He was calm and cooperative. We discussed the presenting scenario. Patient corroborates that he does have a history of depression dating back to high school. He had been on meds for a couple of years in a school but largely to has not taken them and during his adult life. He generally is able to cope with this depression by exercise and going to the gym she. He has been in a relationship with his boyfriend for 8 years. It sounds like there have been troubles with her relationship often on the past. The patient has had a feeling the past few days that there was something wrong so he checked his boyfriend's phone this weekend and discover text messages indicating the patient's boyfriend had been unfaithful to the patient for the past couple of months. The patient confronted his boyfriend about the infidelity early Saturday morning. It sounds like they had an argument. The patient was very upset. It sounds like the patient was staying and in the home and they were planning to work out the relationship and keep going. The patient was largely standing all day upstairs in his bedroom. He says that his boyfriend came to check on him multiple times but the patient did not want to talk. Something happened yesterday evening where the patient became very upset so he grabbed it and new bottle of Naprosyn and took almost the entire bottle in front of his boyfriend. When I asked the patient why he did that, he says he knew the taking the pills might be dangerous and that he thinks he does really wanted his boyfriend to see him taking the pills and stop him from doing it. The patient says that he had almost immediate remorse after swallowing the pills and became worried that it might be a life-threatening ingestion so the patient is boyfriend voluntarily came to the ER last night desiring help. Labs showed normal kidney function. Normal bicarb and no evidence for metabolic acidosis. Repeat labs this morning confirm normal kidney function. He does have mildly abnormal bilirubin at 2.3 and AST at 48 which is similar to labs from last night. No evidence for other involving liver failure. Tylenol level was negative. No alcohol consumption. In [place] review of medical literature it looks like there are rare cases of mild hepatic toxicity from naproxen use which tends to resolve after cessation. It sounds like he was agreeable for inpatient mental health treatment yesterday evening. This morning he is changing his mind. Says he feels he feels better about things any just wants to go home. He has supportive friends and neighbors. His mother supportive. His boyfriend is also very supportive and they are working hard to stabilized their relationship. While this was going on, the patient's boyfriend, Jose De Jesus, was very upset. He had a couple of phone conversations with nursing staff. He says that the nurses told him that social Work has already decided that Lonnie is going for inpatient mental health treatment. He says that should not be possible since the transition social worker has not met with Lonnie yet. He became irate and was threatening to call his formula mixer. He ultimately I was able to meet with the patient, his friend Deniz rod (in person) and his boyfriend Jose De Jesus (by phone). Our hospital transition social worker Leila was present for this interaction. The patient's boyfriend Jose De Jesus was angry and irate. He says that he has been told by 2 different nurses that transition social worker has already recommended inpatient mental health care. Jose De Jesus is upset because the social workers not even seen the patient. He feels it is inappropriate for her to recommend anything without having 1st seen the patient. He is demanding hospital records to find out when Leila saw the patient and what recommendations were given. Ultimately, this seems like a miscommunication and misunderstanding. Leila has not yet seen the patient and has not made any recommendations. She has not called any inpatient facilities to look for bed availability. Father with just coming to see this patient at about 930 when I was doing my reassessment. Jose De Jesus then wants to know why the nurses told him Leila had already recommended inpatient care. I think this was a misunderstanding. The recommendation from the overnight crew was that the patient go for inpatient care. I think that in almost all situations after an intentional overdose of a large amount of pills as a suicide attempt, patient is will benefit from an inpatient mental health stay. We had a long discussion with the patient, his boyfriend, his friend Kristie. The patient says today he is feeling better about things. He is regretful and remorseful about the overdose. He has never had other thoughts of suicide or other suicide attempts in the past. No recent thoughts of self-harm. The patient says he just wants to go home and be with his friends and family. He thinks they are very supportive. His friend Kristie corroborates this. The patient's boyfriend Jose De Jesus also corroborates this. They all agree that the patient is safe to come home. They do not think that he will do any other self- harming behavior or overdose. Although this is an unusual situation, and most people who do have an overdose will ultimately go for inpatient mental health care, in this case I believe the patient when he says that he requests the overdose. He is forward thinking, motivated to get home and requesting discharge. He does not want to go to inpatient mental health care. He has supportive family and friends who also on him to come home. From a safety standpoint and a risk of repeat suicide attempts standpoint, I think he is low risk and could be discharged. We also discussed that an inpatient stay in an inpatient hospital facility or crisis center might be beneficial from a therapeutic standpoint to help him get counseling and coping skills to deal with his current life stressors as well as his long-term depression. Patient agreed to do a 1 on 1 assessment with Leila. This was conducted in private without the patient's friends and family in the room so the patient could feel honest about his answers. Battery also agrees that the patient is safe to discharge and low risk for repeat suicide attempt. Leila and I both have concerns about the patient's long-term mental health and happiness. We do think he would benefit from an inpatient stay or crisis stay. However he is refusing. At this point without an acute active threat to safety, he is not holdable and we can not force him for inpatient care. We at least give him resources for the [facility] and for outpatient mental health treatment with an appointment on 04/30 with outpatient nurse practitioner Psychiatry here in [place]. He and his family are agreeable to the plan of care and they will strongly want him to discharge. <Godfrey Gonzales MD - Last Filed: 04/27/24 14:18> Vital Signs Vital signs: Initial Vital Signs Temperature 97.9 F 04/26/24 21:56 Temperature Source Temporal Artery Scan 04/26/24 21:56 Pulse Rate 88 04/26/24 21:56 Respiratory Rate 16 04/26/24 21:56 Blood Pressure 141/87 H 04/26/24 21:56 Blood Pressure Mean 105 04/26/24 21:56 Blood Pressure Position Sitting 04/26/24 21:56 Pulse Oximetry 98 08/11/24 21:56 Oxygen Delivery Method Room Air 04/26/24 21:56 Vital Signs Temperature 97.9 F 04/26/24 21:56 Pulse Rate 88 04/26/24 21:56 Respiratory Rate 16 04/26/24 21:56 Blood Pressure 141/87 H 04/26/24 21:56 Pulse Oximetry 98 04/26/24 21:56 Oxygen Delivery Method Room Air 04/26/24 21:56 Temperature 98.1 F 04/27/24 08:46 Pulse Rate 94 04/27/24 09:05 Respiratory Rate 18 04/27/24 08:46 Blood Pressure 101/58 L 04/27/24 07:01 Pulse Oximetry 98 04/27/24 09:05 Oxygen Delivery Method Room Air 04/26/24 21:56 <Sumaya Coley MD - Last Filed: 05/04/24 19:07> Initial Vital Signs Temperature 97.9 F 04/26/24 21:56 Temperature Source Temporal Artery Scan 04/26/24 21:56 Pulse Rate 88 04/26/24 21:56 Respiratory Rate 16 04/26/24 21:56 Blood Pressure 141/87 H 04/26/24 21:56 Blood Pressure Mean 105 04/26/24 21:56 Blood Pressure Position Sitting 04/26/24 21:56 Pulse Oximetry 98 04/26/24 21:56 Oxygen Delivery Method Room Air 04/26/24 21:56 Vital Signs Temperature 97.9 F 04/26/24 21:56 Pulse Rate 88 04/26/24 21:56 Respiratory Rate 16 04/26/24 21:56 Blood Pressure 141/87 H 04/26/24 21:56 Pulse Oximetry 98 04/26/24 21:56 Oxygen Delivery Method Room Air 04/26/24 21:56 Temperature 98.1 F 04/27/24 08:46 Pulse Rate 94 04/27/24 09:05 Respiratory Rate 18 04/27/24 08:46 Blood Pressure 101/58 L 04/27/24 07:01 Pulse Oximetry 98 04/27/24 09:05 Oxygen Delivery Method Room Air 04/26/24 21:56 <Supriya Arango MD - Last Filed: 04/28/24 23:56> Initial Vital Signs Temperature 97.9 F 04/26/24 21:56 Temperature Source Temporal Artery Scan 04/26/24 21:56 Pulse Rate 88 04/26/24 21:56 Respiratory Rate 16 04/26/24 21:56 Blood Pressure 141/87 H 04/26/24 21:56 Blood Pressure Mean 105 04/26/24 21:56 Blood Pressure Position Sitting 04/26/24 21:56 Pulse Oximetry 98 04/26/24 21:56 Oxygen Delivery Method Room Air 04/26/24 21:56 Vital Signs Temperature 97.9 F 04/26/24 21:56 Pulse Rate 88 04/26/24 21:56 Respiratory Rate 16 04/26/24 21:56 Blood Pressure 141/87 H 04/26/24 21:56 Pulse Oximetry 98 04/26/24 21:56 Oxygen Delivery Method Room Air 04/26/24 21:56 Temperature 98.1 F 04/27/24 08:46 Pulse Rate 94 04/27/24 09:05 Respiratory Rate 18 04/27/24 08:46 Blood Pressure 101/58 L 04/27/24 07:01 Pulse Oximetry 98 04/27/24 09:05 Oxygen Delivery Method Room Air 04/26/24 21:56 <Godfrey Gonzales MD - Last Filed: 04/27/24 14:18> Medications Administered Medications: Discontinued Medications Generic Name Dose Route Start Last Admin Trade Name Freq PRN Reason Stop Dose Admin Sodium Chloride 1,000 mls @ 1,000 mls/hr 04/27/24 04:09 04/27/24 05:37 0.9 % Sodium Chloride 1000 Ml IV 04/27/24 05:08 Infused .Q1H KATERINA Infusion Omeprazole 20 mg 04/27/24 03:32 04/27/24 04:06 Omeprazole [address] PO 04/27/24 03:33 20 mg ONCE ONE Administration <Sumaya Coley MD - Last Filed: 05/04/24 19:07> Discontinued Medications Generic Name Dose Route Start Last Admin Trade Name Freq PRN Reason Stop Dose Admin Sodium Chloride 1,000 mls @ 1,000 mls/hr 04/27/24 04:09 04/27/24 05:37 0.9 % Sodium Chloride 1000 Ml IV 04/27/24 05:08 Infused .Q1H KATERINA Infusion Omeprazole 20 mg 04/27/24 03:32 04/27/24 04:06 Omeprazole [address] PO 04/27/24 03:33 20 mg ONCE ONE Administration <Supriya Arango MD - Last Filed: 04/28/24 23:56> Discontinued Medications Generic Name Dose Route Start Last Admin Trade Name Castroq PRN Reason Stop Dose Admin Sodium Chloride 1,000 mls @ 1,000 mls/hr 04/27/24 04:09 04/27/24 05:37 0.9 % Sodium Chloride 1000 Ml IV 04/27/24 05:08 Infused .Q1H KATERINA Infusion Omeprazole 20 mg 04/27/24 03:32 04/27/24 04:06 Omeprazole [address] PO 04/27/24 03:33 20 mg ONCE ONE Administration <Godfrey Gonzales MD - Last Filed: 04/27/24 14:18> Medical Decision Making Lab Data Lab results reviewed: Yes I reviewed the patient's lab results <Sumaya Coley MD - Last Filed: 05/04/24 19:07> Labs: Lab Results 04/26/24 04/26/24 04/26/24 Range/Units 22:00 22:18 22:20 WBC 7.84 (4.50-11.00) K/uL RBC 5.33 (4.30-5.90) m/uL Hgb 16.1 (13.5-17.5) gm/dL Hct 48.7 (37.0-53.0) % MCV 91 (80-100) fL MCH 30 (26-34) pg MCHC 33 (32-36) gm/dL RDW Coeff of Parris 13.5 (11.5-15.5) % Plt Count 230 (140-440) K/uL Neut % (Auto) 61.1 (42.0-72.0) % Lymph % (Auto) 30.1 (20-44) % Hardeman % (Auto) 6.9 (0.0-11.0) % Eos % (Auto) 1.0 (0.0-7.0) % Baso % (Auto) 0.4 (0.0-3.0) % Neut # (Auto) 4.79 (1.7-7.0) K/uL Lymph # (Auto) 2.36 (0.90-2.90) K/uL Hardeman # (Auto) 0.50 (0.00-0.90) K/UL Eos # (Auto) 0.08 (0.00-0.50) K/uL Baso # (Auto) 0.03 (0.00-0.30) K/uL Abs Immat Gran (auto) 0.04 (0.00-0.30) K/uL Imm/Tot Granulo (auto) 0.5 % VBG pH 7.391 (7.32-7.43) VBG pCO2 44 (40-50) mmHG VBG pO2 35.8 (25-47) mmHG VBG HCO3 26 (21-28) mmol/L Sodium 140 (135-149) mmol/L Potassium 3.8 (3.6-5.1) mmol/L Chloride 104 (96-114) mmol/L Carbon Dioxide 25 (20-32) mmol/L Anion Gap 11 (7-15) mEq/L BUN 18 (5-24) mg/dL Creatinine 1.2 (0.5-1.5) mg/dL Estimated Creat Clear 97.61 Estimated GFR 84 ml/min Glucose 100 (60-115) mg/dL Calcium 9.3 (8.4-10.6) mg/dL Total Bilirubin 1.0 (0.1-1.5) mg/dL Direct Bilirubin (0.0-0.5) mg/dL AST 58 H (12-35) U/L ALT 37 (4-50) U/L Alkaline Phosphatase 56 (40-150) U/L Total Protein 8.5 H (6.0-8.3) g/dL Albumin 5.0 (3.3-5.0) g/dL TSH 2.450 (0.270-4.200) uIU/mL Salicylates < 1.0 L (1.0-10) mg/dL Urine Opiates Screen Negative (Negative) Ur Oxycodone Screen Negative (Negative) Urine Methadone Screen Negative (Negative) Acetaminophen < 10.0 L (10.0-30.0) ug/mL Ur Barbiturates Screen Negative (Negative) U Tricyclic Antidepress Negative (Negative) Ur Phencyclidine Scrn Negative (Negative) Ur Amphetamines Screen Negative (Negative) U Methamphetamines Scrn Negative (Negative) U Benzodiazepines Scrn Negative (Negative) Urine Cocaine Screen Negative (Negative) U Marijuana (THC) Screen Negative (Negative) Ur Drug Screen Comment See Note Ethyl Alcohol < 0.01 L (0.01-0.03) % SARS-CoV-2 (PCR) Negative SARS-CoV-2 (Negative) 04/27/24 04/27/24 Range/Units 02:10 09:15 WBC (4.50-11.00) K/uL RBC (4.30-5.90) m/uL Hgb (13.5-17.5) gm/dL Hct (37.0-53.0) % MCV (80-100) fL MCH (26-34) pg MCHC (32-36) gm/dL RDW Coeff of Parris (11.5-15.5) % Plt Count (140-440) K/uL Neut % (Auto) (42.0-72.0) % Lymph % (Auto) (20-44) % Hardeman % (Auto) (0.0-11.0) % Eos % (Auto) (0.0-7.0) % Baso % (Auto) (0.0-3.0) % Neut # (Auto) (1.7-7.0) K/uL Lymph # (Auto) (0.90-2.90) K/uL Hardeman # (Auto) (0.00-0.90) K/UL Eos # (Auto) (0.00-0.50) K/uL Baso # (Auto) (0.00-0.30) K/uL Abs Immat Gran (auto) (0.00-0.30) K/uL Imm/Tot Granulo (auto) % VBG pH 7.402 (7.32-7.43) VBG pCO2 42 (40-50) mmHG VBG pO2 48.0 H (25-47) mmHG VBG HCO3 26 (21-28) mmol/L Sodium 139 140 (135-149) mmol/L Potassium 3.9 4.3 (3.6-5.1) mmol/L Chloride 106 108 (96-114) mmol/L Carbon Dioxide 24 22 (20-32) mmol/L Anion Gap 9 10 (7-15) mEq/L BUN 20 19 (5-24) mg/dL Creatinine 1.4 1.3 (0.5-1.5) mg/dL Estimated Creat Clear 83.67 90.10 Estimated GFR 70 77 ml/min Glucose 101 107 (60-115) mg/dL Calcium 9.2 8.9 (8.4-10.6) mg/dL Total Bilirubin 1.3 2.3 H (0.1-1.5) mg/dL Direct Bilirubin 1.2 H (0.0-0.5) mg/dL AST 49 H 48 H (12-35) U/L ALT 31 29 (4-50) U/L Alkaline Phosphatase 50 50 (40-150) U/L Total Protein 7.5 7.5 (6.0-8.3) g/dL Albumin 4.4 4.4 (3.3-5.0) g/dL TSH (0.270-4.200) uIU/mL Salicylates (1.0-10) mg/dL Urine Opiates Screen (Negative) Ur Oxycodone Screen (Negative) Urine Methadone Screen (Negative) Acetaminophen < 10.0 L (10.0-30.0) ug/mL Ur Barbiturates Screen (Negative) U Tricyclic Antidepress (Negative) Ur Phencyclidine Scrn (Negative) Ur Amphetamines Screen (Negative) U Methamphetamines Scrn (Negative) U Benzodiazepines Scrn (Negative) Urine Cocaine Screen (Negative) U Marijuana (THC) Screen (Negative) Ur Drug Screen Comment Ethyl Alcohol (0.01-0.03) % SARS-CoV-2 (PCR) (Negative) <Sumaya Coley MD - Last Filed: 05/04/24 19:07> Lab Results 04/26/24 04/26/24 04/26/24 Range/Units 22:00 22:18 22:20 WBC 7.84 (4.50-11.00) K/uL RBC 5.33 (4.30-5.90) m/uL Hgb 16.1 (13.5-17.5) gm/dL Hct 48.7 (37.0-53.0) % MCV 91 (80-100) fL MCH 30 (26-34) pg MCHC 33 (32-36) gm/dL RDW Coeff of Parris 13.5 (11.5-15.5) % Plt Count 230 (140-440) K/uL Neut % (Auto) 61.1 (42.0-72.0) % Lymph % (Auto) 30.1 (20-44) % Hardeman % (Auto) 6.9 (0.0-11.0) % Eos % (Auto) 1.0 (0.0-7.0) % Baso % (Auto) 0.4 (0.0-3.0) % Neut # (Auto) 4.79 (1.7-7.0) K/uL Lymph # (Auto) 2.36 (0.90-2.90) K/uL Hardeman # (Auto) 0.50 (0.00-0.90) K/UL Eos # (Auto) 0.08 (0.00-0.50) K/uL Baso # (Auto) 0.03 (0.00-0.30) K/uL Abs Immat Gran (auto) 0.04 (0.00-0.30) K/uL Imm/Tot Granulo (auto) 0.5 % VBG pH 7.391 (7.32-7.43) VBG pCO2 44 (40-50) mmHG VBG pO2 35.8 (25-47) mmHG VBG HCO3 26 (21-28) mmol/L Sodium 140 (135-149) mmol/L Potassium 3.8 (3.6-5.1) mmol/L Chloride 104 (96-114) mmol/L Carbon Dioxide 25 (20-32) mmol/L Anion Gap 11 (7-15) mEq/L BUN 18 (5-24) mg/dL Creatinine 1.2 (0.5-1.5) mg/dL Estimated Creat Clear 97.61 Estimated GFR 84 ml/min Glucose 100 (60-115) mg/dL Calcium 9.3 (8.4-10.6) mg/dL Total Bilirubin 1.0 (0.1-1.5) mg/dL Direct Bilirubin (0.0-0.5) mg/dL AST 58 H (12-35) U/L ALT 37 (4-50) U/L Alkaline Phosphatase 56 (40-150) U/L Total Protein 8.5 H (6.0-8.3) g/dL Albumin 5.0 (3.3-5.0) g/dL TSH 2.450 (0.270-4.200) uIU/mL Salicylates < 1.0 L (1.0-10) mg/dL Urine Opiates Screen Negative (Negative) Ur Oxycodone Screen Negative (Negative) Urine Methadone Screen Negative (Negative) Acetaminophen < 10.0 L (10.0-30.0) ug/mL Ur Barbiturates Screen Negative (Negative) U Tricyclic Antidepress Negative (Negative) Ur Phencyclidine Scrn Negative (Negative) Ur Amphetamines Screen Negative (Negative) U Methamphetamines Scrn Negative (Negative) U Benzodiazepines Scrn Negative (Negative) Urine Cocaine Screen Negative (Negative) U Marijuana (THC) Screen Negative (Negative) Ur Drug Screen Comment See Note Ethyl Alcohol < 0.01 L (0.01-0.03) % SARS-CoV-2 (PCR) Negative SARS-CoV-2 (Negative) 04/27/24 04/27/24 Range/Units 02:10 09:15 WBC (4.50-11.00) K/uL RBC (4.30-5.90) m/uL Hgb (13.5-17.5) gm/dL Hct (37.0-53.0) % MCV (80-100) fL MCH (26-34) pg MCHC (32-36) gm/dL RDW Coeff of Parris (11.5-15.5) % Plt Count (140-440) K/uL Neut % (Auto) (42.0-72.0) % Lymph % (Auto) (20-44) % Hardeman % (Auto) (0.0-11.0) % Eos % (Auto) (0.0-7.0) % Baso % (Auto) (0.0-3.0) % Neut # (Auto) (1.7-7.0) K/uL Lymph # (Auto) (0.90-2.90) K/uL Hardeman # (Auto) (0.00-0.90) K/UL Eos # (Auto) (0.00-0.50) K/uL Baso # (Auto) (0.00-0.30) K/uL Abs Immat Gran (auto) (0.00-0.30) K/uL Imm/Tot Granulo (auto) % VBG pH 7.402 (7.32-7.43) VBG pCO2 42 (40-50) mmHG VBG pO2 48.0 H (25-47) mmHG VBG HCO3 26 (21-28) mmol/L Sodium 139 140 (135-149) mmol/L Potassium 3.9 4.3 (3.6-5.1) mmol/L Chloride 106 108 (96-114) mmol/L Carbon Dioxide 24 22 (20-32) mmol/L Anion Gap 9 10 (7-15) mEq/L BUN 20 19 (5-24) mg/dL Creatinine 1.4 1.3 (0.5-1.5) mg/dL Estimated Creat Clear 83.67 90.10 Estimated GFR 70 77 ml/min Glucose 101 107 (60-115) mg/dL Calcium 9.2 8.9 (8.4-10.6) mg/dL Total Bilirubin 1.3 2.3 H (0.1-1.5) mg/dL Direct Bilirubin 1.2 H (0.0-0.5) mg/dL AST 49 H 48 H (12-35) U/L ALT 31 29 (4-50) U/L Alkaline Phosphatase 50 50 (40-150) U/L Total Protein 7.5 7.5 (6.0-8.3) g/dL Albumin 4.4 4.4 (3.3-5.0) g/dL TSH (0.270-4.200) uIU/mL Salicylates (1.0-10) mg/dL Urine Opiates Screen (Negative) Ur Oxycodone Screen (Negative) Urine Methadone Screen (Negative) Acetaminophen < 10.0 L (10.0-30.0) ug/mL Ur Barbiturates Screen (Negative) U Tricyclic Antidepress (Negative) Ur Phencyclidine Scrn (Negative) Ur Amphetamines Screen (Negative) U Methamphetamines Scrn (Negative) U Benzodiazepines Scrn (Negative) Urine Cocaine Screen (Negative) U Marijuana (THC) Screen (Negative) Ur Drug Screen Comment Ethyl Alcohol (0.01-0.03) % SARS-CoV-2 (PCR) (Negative) <Supriya Arango MD - Last Filed: 04/28/24 23:56> Lab Results 04/26/24 04/26/24 04/26/24 Range/Units 22:00 22:18 22:20 WBC 7.84 (4.50-11.00) K/uL RBC 5.33 (4.30-5.90) m/uL Hgb 16.1 (13.5-17.5) gm/dL Hct 48.7 (37.0-53.0) % MCV 91 (80-100) fL MCH 30 (26-34) pg MCHC 33 (32-36) gm/dL RDW Coeff of Parris 13.5 (11.5-15.5) % Plt Count 230 (140-440) K/uL Neut % (Auto) 61.1 (42.0-72.0) % Lymph % (Auto) 30.1 (20-44) % Hardeman % (Auto) 6.9 (0.0-11.0) % Eos % (Auto) 1.0 (0.0-7.0) % Baso % (Auto) 0.4 (0.0-3.0) % Neut # (Auto) 4.79 (1.7-7.0) K/uL Lymph # (Auto) 2.36 (0.90-2.90) K/uL Hardeman # (Auto) 0.50 (0.00-0.90) K/UL Eos # (Auto) 0.08 (0.00-0.50) K/uL Baso # (Auto) 0.03 (0.00-0.30) K/uL Abs Immat Gran (auto) 0.04 (0.00-0.30) K/uL Imm/Tot Granulo (auto) 0.5 % VBG pH 7.391 (7.32-7.43) VBG pCO2 44 (40-50) mmHG VBG pO2 35.8 (25-47) mmHG VBG HCO3 26 (21-28) mmol/L Sodium 140 (135-149) mmol/L Potassium 3.8 (3.6-5.1) mmol/L Chloride 104 (96-114) mmol/L Carbon Dioxide 25 (20-32) mmol/L Anion Gap 11 (7-15) mEq/L BUN 18 (5-24) mg/dL Creatinine 1.2 (0.5-1.5) mg/dL Estimated Creat Clear 97.61 Estimated GFR 84 ml/min Glucose 100 (60-115) mg/dL Calcium 9.3 (8.4-10.6) mg/dL Total Bilirubin 1.0 (0.1-1.5) mg/dL Direct Bilirubin (0.0-0.5) mg/dL AST 58 H (12-35) U/L ALT 37 (4-50) U/L Alkaline Phosphatase 56 (40-150) U/L Total Protein 8.5 H (6.0-8.3) g/dL Albumin 5.0 (3.3-5.0) g/dL TSH 2.450 (0.270-4.200) uIU/mL Salicylates < 1.0 L (1.0-10) mg/dL Urine Opiates Screen Negative (Negative) Ur Oxycodone Screen Negative (Negative) Urine Methadone Screen Negative (Negative) Acetaminophen < 10.0 L (10.0-30.0) ug/mL Ur Barbiturates Screen Negative (Negative) U Tricyclic Antidepress Negative (Negative) Ur Phencyclidine Scrn Negative (Negative) Ur Amphetamines Screen Negative (Negative) U Methamphetamines Scrn Negative (Negative) U Benzodiazepines Scrn Negative (Negative) Urine Cocaine Screen Negative (Negative) U Marijuana (THC) Screen Negative (Negative) Ur Drug Screen Comment See Note Ethyl Alcohol < 0.01 L (0.01-0.03) % SARS-CoV-2 (PCR) Negative SARS-CoV-2 (Negative) 04/27/24 04/27/24 Range/Units 02:10 09:15 WBC (4.50-11.00) K/uL RBC (4.30-5.90) m/uL Hgb (13.5-17.5) gm/dL Hct (37.0-53.0) % MCV (80-100) fL MCH (26-34) pg MCHC (32-36) gm/dL RDW Coeff of Parris (11.5-15.5) % Plt Count (140-440) K/uL Neut % (Auto) (42.0-72.0) % Lymph % (Auto) (20-44) % Hardeman % (Auto) (0.0-11.0) % Eos % (Auto) (0.0-7.0) % Baso % (Auto) (0.0-3.0) % Neut # (Auto) (1.7-7.0) K/uL Lymph # (Auto) (0.90-2.90) K/uL Hardeman # (Auto) (0.00-0.90) K/UL Eos # (Auto) (0.00-0.50) K/uL Baso # (Auto) (0.00-0.30) K/uL Abs Immat Gran (auto) (0.00-0.30) K/uL Imm/Tot Granulo (auto) % VBG pH 7.402 (7.32-7.43) VBG pCO2 42 (40-50) mmHG VBG pO2 48.0 H (25-47) mmHG VBG HCO3 26 (21-28) mmol/L Sodium 139 140 (135-149) mmol/L Potassium 3.9 4.3 (3.6-5.1) mmol/L Chloride 106 108 (96-114) mmol/L Carbon Dioxide 24 22 (20-32) mmol/L Anion Gap 9 10 (7-15) mEq/L BUN 20 19 (5-24) mg/dL Creatinine 1.4 1.3 (0.5-1.5) mg/dL Estimated Creat Clear 83.67 90.10 Estimated GFR 70 77 ml/min Glucose 101 107 (60-115) mg/dL Calcium 9.2 8.9 (8.4-10.6) mg/dL Total Bilirubin 1.3 2.3 H (0.1-1.5) mg/dL Direct Bilirubin 1.2 H (0.0-0.5) mg/dL AST 49 H 48 H (12-35) U/L ALT 31 29 (4-50) U/L Alkaline Phosphatase 50 50 (40-150) U/L Total Protein 7.5 7.5 (6.0-8.3) g/dL Albumin 4.4 4.4 (3.3-5.0) g/dL TSH (0.270-4.200) uIU/mL Salicylates (1.0-10) mg/dL Urine Opiates Screen (Negative) Ur Oxycodone Screen (Negative) Urine Methadone Screen (Negative) Acetaminophen < 10.0 L (10.0-30.0) ug/mL Ur Barbiturates Screen (Negative) U Tricyclic Antidepress (Negative) Ur Phencyclidine Scrn (Negative) Ur Amphetamines Screen (Negative) U Methamphetamines Scrn (Negative) U Benzodiazepines Scrn (Negative) Urine Cocaine Screen (Negative) U Marijuana (THC) Screen (Negative) Ur Drug Screen Comment Ethyl Alcohol (0.01-0.03) % SARS-CoV-2 (PCR) (Negative) <Godfrey Gonzales MD - Last Filed: 04/27/24 14:18> ECG Data Attestation: I personally reviewed and interpreted this ECG as follows: (Normal sinus rhythm, 75 beats per minute. QT corrected 395 milliseconds.) <Sumaya Roth MD - Last Filed: 05/04/24 19:07> Prior ECG tracings: not available for review <Sumaya Coley MD - Last Filed: 05/04/24 19:07> Discharge Plan Discharge Clinical Impression: Drug overdose Qualifiers: Encounter type: initial encounter Injury intent: intentional self-harm Qualified Code(s): T50.902A - Poisoning by unspecified drugs, medicaments and biological substances, intentional self-harm, initial encounter Depression Qualifiers: Depression Type: major depressive disorder Major depression recurrence: unspecified whether recurrent Active/Remission status: currently active Major depression episode severity: unspecified Qualified Code(s): F32.9 - Major depressive disorder, single episode, unspecified <Sumaya Coley MD - Last Filed: 05/04/24 19:07> Patient Disposition: Home, Self-Care <Sumaya Coley MD - Last Filed: 05/04/24 19:07> Condition: Stable <Sumaya Coley MD - Last Filed: 05/04/24 19:07> Instructions: Depression (ED), Help Prevent Suicide (ED), Adult Overdose (ED), Suicide Prevention (ED) <Sumaya Coley MD - Last Filed: 05/04/24 19:07> Additional Instructions: As we discussed, please call 911 and return to the ER right away if you have any more thoughts of overdose, self-harm, or suicide. Please follow-up on for your outpatient mental health appointment to meet with the mental health professionals. You should discuss options for ongoing treatment with them. You may elect to go with counseling or possibly could benefit from medications. Remember, if you have any concerns, come back to the ER right away. Mental health consultation with Jon Schwartz NP Appointment time: 10:00 AM on , 04/30/24 [facility] [address], [address] <Sumaya Coley MD - Last Filed: 05/04/24 19:07> Prescriptions: No Action No Known Home Medications <Sumaya Coley MD - Last Filed: 05/04/24 19:07> Follow Up/Referrals: Provider,Not a Local [Primary Care Provider] - <Sumaya Coley MD - Last Filed: 05/04/24 19:07> Stand Alone Forms: obopay Info Instructions <Sumaya Coley MD - Last Filed: 05/04/24 19:07>
[2024-04-26 21:56] VITALS: BP 141/87; PULSE 88; RESP 16; TEMP 36.6; O2SAT 98; BMI 32.1
[2024-04-26 22:24] VITALS: O2SAT 98
[2024-04-26 22:24] LABS: HCO3 VBG 26 mmol/L (21-28); PCO2 VBG 44 mmHG (40-50); PO2 VBG 35.8 mmHG (25-47); pH VBG 7.391 (7.32-7.43)
[2024-04-26 22:26] VITALS: BP 142/89; PULSE 76; RESP 16
[2024-04-26 22:29] LABS: Amphetamine Screen Urine Negative (Negative); Barbiturate Screen Urine Negative (Negative); Benzodiazepines Screen Urine Negative (Negative); Cannabinoid Screen Urine Negative (Negative); Cocaine Screen Urine Negative (Negative); Methadone Screen Urine Negative (Negative); Methamphetamines Screen Urine Negative (Negative); Opiate Screen Urine Negative (Negative); Oxycodone Screen Urine Negative (Negative); Phencyclidine Screen Urine Negative (Negative); Tricyclic Antidepressant Urine Negative (Negative)
[2024-04-26 22:31] VITALS: BP 134/81; PULSE 76; RESP 16
--- OUTSIDE RECORDS SUMMARY | 2024-04-26 22:37 | XMS_ITS | Clinical Summary ---
Author Organization [facility] Address [address] [place] [address] Care Team Providers Care Girl Friday Name Role Phone Unavailable Primary Care Provider Unavailabl e Source Comments You are receiving this document as you are listed as the primary care provider,follow-up provider, or the patient has been referred to you for consultation.This is in compliance with the Medicare andMedicaid EHR Incentive Program,which states Providers who transition their patient to another setting of careor provider of care or refers their patient to another provider of care shouldprovide summary care record for each transition of care or referral. [facility] Allergies No known active allergies Medications No known medications Active Problems No known active problems Social History Tobacco Use Types Packs/Day Years Used Date Smoking Tobacco: Never Smokeless Tobacco: Never Sex and Gender Information Value Date Recorded Sex Assigned at Not on file Gender Identity Not on file Sexual Orientation Not on file Last Filed Vital Signs Vital Sign Reading Time Taken Comments Blood Pressure 150/73 06/18/2017 6:07 PM CDT Pulse 65 06/18/2017 6:07 PM CDT Temperature 37.5 ??C (99.5 ??F) 06/18/2017 6:07 PM CD T Respiratory Rate 20 06/18/2017 6:07 PM CDT Oxygen Saturation 97% 06/18/2017 6:07 PM CDT Inhaled Oxygen Concentration - - Weight - - Height - - Body Mass Index - - Plan of Treatment Health Maintenance Due Date Last Done Comments Hep C Screening (Preventive Services) 1995 HIV Screening (Preventive Services) 2011 Adult Preventive Visit 2013 DTaP/Tdap/Td (1 - Tdap) 2014 HepB (1) 2014 COVID-19 Vaccine ( - 2022-2 4 season) 2023 Influenza (#1) 2024 Zoster/Shingles (1 of 2) 2045 HPV Vaccine Aged Out No longer eligi ble based on patient's age to complete this topic HepA Aged Out No longer eligi ble based on patient's age to complete this topic Hib Aged Out No longer eligi ble based on patient's age to complete this topic IPV (Polio) Aged Out No longer eligi ble based on patient's age to complete this topic MCV4 Aged Out No longer eligi ble based on patient's age to complete this topic Pneumococcal Aged Out No longer eligi ble based on patient's age to complete this topic
--- OUTSIDE RECORDS SUMMARY | 2024-04-26 22:37 | XMS_ITS | Clinical Summary ---
Author Organization [facility] Address [place], [place] [address] Care Team Providers Care Mold Puller Name Role Phone Pcp, No Primary Care Provider Unavailabl e Pcp, No Unavailable Unavailable Allergies No known active allergies Medications Medication Sig Dispensed Refills Start Date End Date Status citalopram (CELEXA) 20 mg tablet Take 1 tablet by mouth once daily. 0 12/30/2015 Active Active Problems Problem Noted Date Diagnosed Date Exercise-induced asthma 03/06/2013 Immunizations Name Administration Dates Next Due DTP 09/04/1999, 8,03/20/1996,01/13/1996,1995 Hepatitis B (Peds) 03/07/2009,09/19/2007, 007 Inactivated Polio Vaccine 11/04/1999,01/1996,01/13/1996,1995,1994 Measles 08/25/2000,06/04/1996 Tdap 05/13/2009 Varicella Vaccine 01/19/2010,05/13/2009 Family History Medical History Relation Name Comments Diabetes Maternal Aunt Diabetes Maternal Grandmother Diabetes Mother Relation Name Status Comments Maternal Aunt Maternal Grandmother Mother Social History Tobacco Use Types Packs/Day Years Used Date Smoking Tobacco: Never Smokeless Tobacco: Never Tobacco Cessation:Counseling Given: Yes Alcohol Use Standard Drinks/Week Comments No 0 (1 standard drink = 0.6 oz pur e alcohol) Sex and Gender Information Value Date Recorded Sex Assigned at Not on file Gender Identity Not on file Sexual Orientation Not on file Obstetrics History Last Filed Vital Signs Vital Sign Reading Time Taken Comments Blood Pressure 132/74 12/30/2015 7:40 AM CDT Pulse 60 12/30/2015 7:40 AM CDT Temperature 36.6 ??C (97.8 ??F) 12/30/2015 7:40 AM CD T Respiratory Rate - - Oxygen Saturation 99% 12/30/2015 7:40 AM CDT Inhaled Oxygen Concentration - - Weight 78.7 kg (173 lb 8 oz) 12/30/2015 7:40 AM CDT Height 173 cm (5' 8.11) 12/30/2015 7:40 AM CDT Body Mass Index 26.3 12/30/2015 7:40 AM CDT Plan of Treatment Health Maintenance Due Date Last Done Comments Depression screening for age 12+ 2007 BMI (ht and wt on same day) for age 18+ 12/29/2016 12/30/2015 Tetanus booster 05/13/2019 05/13/2009 COVID-19 vaccine series (2022-24 season) 2023 Influenza for age 9-49 05/17/2024 Tdap Completed 05/13/2009 HIV for age 15-65 Completed 12/30/2015, 11/12/2014 Hepatitis C screening for ag e 18-79 Completed 12/30/2015 Pneumococcal series for age 6-64 Aged Out No longer eligible b ased on patient's age to complete this topic Procedures Procedure Name Priority Date/Time Associated Diagnosis Comments ANTI HIV 1/2 Routine 12/30/2015 8:20 AM CDT Screen for STD (sexually transmitted disease) ANTI HCV Routine 12/30/2015 8:20 AM CDT Screen for STD (sexually transmitted disease) from Last 3 Months or Most Recently Relevant to Health Maintenance Results * ANTI HCV (12/30/2015 8:20 AM CDT) HEPATITIS C ANTIBODY Non-Reacti ve Non-Reacti ve 12/30/2015 1:46 PM CDT [facility] Blood specimen (specimen) BLOOD SPECIMEN / Unknown Venipuncture / Unknown 12/30/2015 8:20 AM CDT 12/30/2015 8:20 AM CDT Narrative [facility] - 12/30/2015 1:46 PM CDT Antibodies to HCV not detected; does not exclude the possibility of exposure to HCV. R[facility] SM[facility] [address] [place] [address], * ANTI HIV 1/2 (12/30/2015 8:20 AM CDT) HIV-1/HIV-2 ANTIBODY Non-Reacti ve Non-Reacti ve 12/30/2015 1:41 PM CDT [facility] Blood specimen (specimen) BLOOD SPECIMEN / Unknown Venipuncture / Unknown 12/30/2015 8:20 AM CDT 12/30/2015 8:20 AM CDT Narrative [facility] - 12/30/2015 1:41 PM CDT HIV-1 p24 and HIV-1/HIV-2 Ab not detected Rani SMITH [facility] Performing Organization Address [facility] Co de Phone Number [facility] [address] [place] [address], from Last 3 Months or Most Recently Relevant to Health Maintenance Care Teams Mold Puller Relationship Specialty Start Date End Date Pcp, No . PCP - General 11/09/14 Pcp, No . 11/09/14
[2024-04-26 22:44] LABS: Chloride* 104 mmol/L (96-114)
[2024-04-26 22:45] LABS: Basophils Absolute Auto 0.03 K/uL (0.00-0.30); Basophils Percent Auto 0.4 % (0.0-3.0); Eosinophils Absolute Auto 0.08 K/uL (0.00-0.50); Hematocrit 48.7 % (37.0-53.0); Hemoglobin* 16.1 gm/dL (13.5-17.5); Immature Granulocytes Abs Auto 0.04 K/uL (0.00-0.30); Immature Granulocytes Pct Auto 0.5 %; Lymphocytes Absolute Auto 2.36 K/uL (0.90-2.90); Lymphocytes Percent Auto 30.1 % (20-44); Mean Corpuscular HGB Conc 33 gm/dL (32-36); Mean Corpuscular Hemoglobin 30 pg (26-34); Mean Corpuscular Volume 91 fL (80-100); Monocytes Percent Auto 6.9 % (0.0-11.0); Neutrophils Absolute Auto 4.79 K/uL (1.7-7.0); Neutrophils Percent Auto 61.1 % (42.0-72.0); Platelet Count* 230 K/uL (140-440); Potassium* 3.8 mmol/L (3.6-5.1); RDW Coefficient of Variation % 13.5 % (11.5-15.5); Red Blood Count 5.33 m/uL (4.30-5.90); Sodium* 140 mmol/L (135-149); White Blood Count* 7.84 K/uL (4.50-11.00)
[2024-04-26 22:47] LABS: Creatinine* 1.2 mg/dL (0.5-1.5); Est. Creatinine Clearance* 97.61; Estimated Glomerular Filt Rate 84 ml/min
[2024-04-26 22:48] LABS: Alanine Aminotransferase* 37 U/L (4-50); Alkaline Phosphatase* 56 U/L (40-150); Anion Gap 11 mEq/L (7-15); Aspartate Amino Transferase* 58 U/L (12-35); Blood Urea Nitrogen* 18 mg/dL (5-24); Calcium* 9.3 mg/dL (8.4-10.6); Carbon Dioxide* 25 mmol/L (20-32); Glucose* 100 mg/dL (60-115); Total Protein* 8.5 g/dL (6.0-8.3)
[2024-04-26 22:50] LABS: Acetaminophen* < 10.0 ug/mL (10.0-30.0); Ethanol* < 0.01 % (0.01-0.03); Salicylate* < 1.0 mg/dL (1.0-10); Slide Review Reflex No
[2024-04-26 23:01] VITALS: BP 135/83; PULSE 71; RESP 16; O2SAT 97
[2024-04-26 23:03] LABS: SARS PCR* Negative SARS-CoV-2 (Negative)
[2024-04-26 23:31] VITALS: BP 130/91; PULSE 72; RESP 16; O2SAT 96
[2024-04-27] VITALS (24 sets, daily range): BP systolic 101–124; BP diastolic 50–62; PULSE 68–97; RESP 16–18; TEMP 36.7; O2SAT 96–98
[2024-04-27 02:15] LABS: HCO3 VBG 26 mmol/L (21-28); PCO2 VBG 42 mmHG (40-50); pH VBG 7.402 (7.32-7.43)
[2024-04-27 02:31] LABS: Chloride* 106 mmol/L (96-114); Potassium* 3.9 mmol/L (3.6-5.1); Sodium* 139 mmol/L (135-149)
[2024-04-27 02:34] LABS: Anion Gap 9 mEq/L (7-15); Blood Urea Nitrogen* 20 mg/dL (5-24); Carbon Dioxide* 24 mmol/L (20-32); Creatinine* 1.4 mg/dL (0.5-1.5); Est. Creatinine Clearance* 83.67; Estimated Glomerular Filt Rate 70 ml/min; Glucose* 101 mg/dL (60-115)
[2024-04-27 02:35] LABS: Calcium* 9.2 mg/dL (8.4-10.6)
[2024-04-27 02:37] LABS: Acetaminophen* < 10.0 ug/mL (10.0-30.0)
[2024-04-27] MEDS: OMEPRAZOLE 20 MG CAPSULE DR PO (04:06)
[2024-04-27] MEDS: 0.9 % SODIUM CHLORIDE 1000 ml 1,000 ML IV (04:10)
[2024-04-27 05:21] LABS: Alanine Aminotransferase* 31 U/L (4-50); Albumin* 4.4 g/dL (3.3-5.0); Alkaline Phosphatase* 50 U/L (40-150); Aspartate Amino Transferase* 49 U/L (12-35); Bilirubin Direct* 1.2 mg/dL (0.0-0.5); Bilirubin Total* 1.3 mg/dL (0.1-1.5); Total Protein* 7.5 g/dL (6.0-8.3)
--- NOTE | 2024-04-27 08:15 | ED.NURSE ---
Pt is awake in room, denying wanting any breakfast at this time. Pt is calm and cooperative at this time.
--- NOTE | 2024-04-27 09:46 | PC.NURSE ---
Pt output of 150cc urine, urine appearing dark yellow
[2024-04-27 09:49] LABS: Albumin* 4.4 g/dL (3.3-5.0)
[2024-04-27 09:50] LABS: Chloride* 108 mmol/L (96-114); Potassium* 4.3 mmol/L (3.6-5.1); Sodium* 140 mmol/L (135-149)
[2024-04-27 09:52] LABS: Anion Gap 10 mEq/L (7-15); Aspartate Amino Transferase* 48 U/L (12-35); Bilirubin Total* 2.3 mg/dL (0.1-1.5); Carbon Dioxide* 22 mmol/L (20-32); Creatinine* 1.3 mg/dL (0.5-1.5); Estimated Glomerular Filt Rate 77 ml/min; Total Protein* 7.5 g/dL (6.0-8.3)
[2024-04-27 09:53] LABS: Alanine Aminotransferase* 29 U/L (4-50); Alkaline Phosphatase* 50 U/L (40-150); Blood Urea Nitrogen* 19 mg/dL (5-24); Calcium* 8.9 mg/dL (8.4-10.6); Glucose* 107 mg/dL (60-115)
--- NOTE | 2024-04-27 10:48 | ED.NURSE ---
Social work in pt room consulting with pt.
--- NOTE | 2024-04-27 11:13 | ED.NURSE ---
Jose De Jesus, pt significant other, called hospital to ask on pt update. Social work was consulted to talk with pt this morning, social work had not been in to see the pt yet. Told Jose De Jesus the social science teacher had not been in to see the pt yet this morning, told Jose De Jesus will call him back as soon as their is an update on pt disposition/plan. Jose De Jesus stated on the phone he was going to call his county attorney to come here, if the pt was not seen by social work by noon. Jose De Jesus stated he did not want the pt sitting all day without being seen. Educated to Jose De Jesus that the pt has been medically cleared at this time, but for mental health he still needs to be evaluated. Liela social science teacher called, stated she was looking for placement for the pt based on the physicians statement on the doctors note. Rn Surgery called Jose De Jesus, updated that social work was looking for placement for the pt. The pt was not seen by social work at this point, and the pt notified Jose De Jesus of this. Spoke with Jose De Jesus on the phone, stated he is going to steffen the hospital due to the pt not being seen by social work before looking for placement for the pt. Leila zuniga updated. Leila and in the room to assess pt. Kristie, pt friend in room with the pt.
--- NOTE | 2024-04-27 11:20 | ED.NURSE ---
Breakfast tray ordered for pt.
--- NOTE | 2024-04-27 13:03 | ED.NURSE ---
Pt belongings given back to pt.
--- NOTE | 2024-04-27 14:59 | PC.SOCIAL ---
Social work: Mental Health Assessment completed with pt. Please see scanned report in this chart for details. Pt admitted to an intentional overdose of medication as a suicide attempt. Pt shared that he took the medication in the middle of a argument with his boyfriend who he had recently found out has been cheating on him. Pt was immediately remorseful and requested transport to the hospital for evaluation and treatment. Boyfriend, Jose De Jesus, brought pt to the hospital. Per initial MD assessment, in-pt mental health placement was requested by pt. However, when high school social science teacher had arrived for assessment, pt no longer was requesting in-pt placement and was wanting to be discharged home with out-pt follow up. Pt was very remorseful to his actions stating he would never kill himself because I have so much to live for. Pt denies any current suicidal ideation or any other past self harm. He shared that he is well supported by friends and family and has daily contact with his mother. Pt is planning to continue with his relationship with Jose De Jesus and believes he is safe to be discharged home where they live together. Pt has a neighbor/friend, Kristie, who came to the hospital to be with pt and facilitate his discharge home. Information was provided to pt on ental health services available through the [facility], [facility] mental health services, and a list of private therapist in the [facility] area from the [facility] [employer] website. Pt shared that he currently does not have health insurance although he has had Medical Assistance in the past. Pt plans to apply for Medical Assistance which he is aware would cover mental health and hospital medical care. Informed pt of the option to use the [employer] navigator free service for assistance with Medical Assistance application through the [facility] and [facility]. Also informed pt of [facility] Pt was offered a one time appointment at no cost to be seen by Jon Schwartz at [facility] on at 10:00am. Pt was pleased and accepted this appointment. Provided pt with consultation sheet and appointment information for this appointment. Faxed required information to Jon Schwartz for follow up.
== END 2024-04-27 13:02 | disposition home or self-care (01) ==
PROVIDERS: Family Medicine; Emergency Provider Emergency Medicine
DX: T39.312A Poisoning by propionic acid derivatives, intentional self-harm, initial encounter (principal); F32.A Depression, unspecified
CPT/HCPCS: 36415; 80048; 80053; 80076; 80143; 80179; 80306; 82077; 82803; 84443; 85025; 87635; 93005; 94761; 96360; 99284; 99285; A9270; J7030